=== PATIENT | male | born 1955 | race Caucasian/White ===

== ENCOUNTER 2018-03-12 11:01 | Emergency (ER) | payer MEDICARE, MEDICAID ==
[~2018-03-12] VITALS: Ht 188 cm; Wt 78.0 kg
[~2018-03-12 11:01] MED LIST: AMLO10TA4 PO; ASPI-1265 PO; ATOR40TA3 PO; LORA-660 PO; LOSA50TA3 PO; METO-477 PO
[2018-03-12] MEDS ORDERED: AMLO10TA4 PO (11:50)
[2018-03-12] MEDS ORDERED: amLODIPine 5mg tablet PO ONE (11:50)
[2018-03-12] MEDS ORDERED: metoprolol tartrate 50mg tablet PO ONE (12:20)
[2018-03-12] MEDS ORDERED: normal saline 1000ML IV soln IVB ONE (13:15)
[2018-03-12] MEDS ORDERED: hydrALAZINE 20mg/ml inj. IV ONE (13:15)
[2018-03-12 13:26] LABS: BASOPHILS % (AUTO) 0.6 % (0-1); EOSINOPHILS # (AUTO) 0.3 X10'3 (0-0.9); EOSINOPHILS % (AUTO) 5.1 % (0-6); HEMATOCRIT 44.8 % (42.0-52.0); HEMOGLOBIN 15.5 g/dl (14.0-17.9); LYMPHOCYTES # (AUTO) 1.3 X10'3 (1.1-4.8); LYMPHOCYTES % (AUTO) 19.5 % (21-51); MEAN CORPUSCULAR HEMOGLOBIN 32.1 PG (27.0-31.0); MEAN CORPUSCULAR HGB CONC 34.7 % (33.0-36.5); MEAN CORPUSCULAR VOLUME 92.6 FL (78-98); MEAN PLATELET VOLUME 8.4 FL (7.4-10.4); MONOCYTES # (AUTO) 0.6 X10'3 (0-0.9); MONOCYTES % (AUTO) 8.6 % (2-12); NEUTROPHILS # (AUTO) 4.5 X10'3 (1.8-7.7); NEUTROPHILS % (AUTO) 66.2 % (42-75); PLATELET COUNT 271 X10'3 (140-440); RED BLOOD COUNT 4.83 X10'6 (4.70-6.10); RED CELL DISTRIBUTION WIDTH 13.6 % (11.5-14.5); WHITE BLOOD COUNT 6.8 X10'3 (4.5-11.0)
[2018-03-12] MEDS ORDERED: furosemide 10 MG/1 ML 10ml inj IV ONE (13:55)
[2018-03-12 14:04] LABS: ALANINE AMINOTRANSFERASE 46 U/L (12-78); ALBUMIN 3.4 G/DL (3.4-5.0); ALBUMIN/GLOBULIN RATIO 0.9 (1.1-1.5); ALKALINE PHOSPHATASE 77 IU/L (46-116); ANION GAP 10 (8-16); ASPARTATE AMINO TRANSFERASE 26 U/L (10-37); BILIRUBIN,TOTAL 0.4 MG/DL (0.1-1.0); BLOOD UREA NITROGEN 18 MG/DL (7-18); BUN/CREATININE RATIO 11.9 (5.4-32.0); CALCIUM 8.8 MG/DL (8.5-10.1); CHLORIDE 103 MMOL/L (99-107); CREATININE 1.51 MG/DL (0.60-1.10); GLUCOSE 110 MG/DL (70-104); POTASSIUM 3.4 MMOL/L (3.5-5.1); SODIUM 139 MMOL/L (135-145); TOTAL CARBON DIOXIDE 26.2 MMOL/L (24-32); TOTAL PROTEIN 7.3 G/DL (6.4-8.2); eGFR 47 ML/MIN
[2018-03-12] MEDS ORDERED: potassium Cl oral solution 20 MEQ/15 ML PO ONE (14:15)
[2018-03-12 14:21] VITALS: BP 192/102
== END 2018-03-12 14:25 | disposition home or self-care (01) ==
LOC: ER 11:02
DX: K40.90 Unilateral inguinal hernia, without obstruction or gangrene, not specified as recurrent (principal); I16.0 Hypertensive urgency; I10 Essential (primary) hypertension; Z91.14 Patient's other noncompliance with medication regimen; Z86.73 Personal history of transient ischemic attack (TIA), and cerebral infarction without residual deficits; Z98.890 Other specified postprocedural states; Z88.8 Allergy status to other drugs, medicaments and biological substances; Z79.82 Long term (current) use of aspirin; Z79.899 Other long term (current) drug therapy
CPT/HCPCS: 36415; 71045; 80053; 83880; 84484; 85025; 93005; 96374; 96375; 99285; J0360; J1940; J7030

== ENCOUNTER 2018-06-23 09:03 | Inpatient (IN) | payer MEDICARE, MEDICAID ==
[~2018-06-23] VITALS: Ht 188 cm; Wt 109.9 kg
[~2018-06-23 09:03] MED LIST changes: -ASPI-1265 PO; -ATOR40TA3 PO; -LORA-660 PO; -LOSA50TA3 PO; -METO-477 PO
[2018-06-23 10:17] LABS: CLARITY,URINE CLEAR (Clear); COLOR,URINE YELLOW (Yellow); GLUCOSE, URINE NEGATIVE (Neg); KETONES,URINE NEGATIVE (Neg); LEUKOCYTE ESTERASE ,URINE NEGATIVE (Neg); NITRITES, URINE NEGATIVE (Neg); OCCULT BLOOD,URINE TRACE-INTACT (Neg); PROTEIN,URINE >=300 mg/dl (Neg); UA COLLECTION TYPE VOIDED; UROBILINOGEN,URINE 0.2 E.U/dL (0.2-1.0)
[2018-06-23 10:25] LABS: BASOPHILS # (AUTO) 0.1 X10'3 (0-0.2); BASOPHILS % (AUTO) 0.5 % (0-1); EOSINOPHILS # (AUTO) 1.6 X10'3 (0-0.9); EOSINOPHILS % (AUTO) 14.6 % (0-6); HEMATOCRIT 43.9 % (42.0-52.0); HEMOGLOBIN 15.2 g/dl (14.0-17.9); LYMPHOCYTES # (AUTO) 1.4 X10'3 (1.1-4.8); LYMPHOCYTES % (AUTO) 12.2 % (21-51); MEAN CORPUSCULAR HGB CONC 34.6 % (33.0-36.5); MEAN CORPUSCULAR VOLUME 92.5 FL (78-98); MEAN PLATELET VOLUME 8.9 FL (7.4-10.4); MONOCYTES # (AUTO) 0.4 X10'3 (0-0.9); MONOCYTES % (AUTO) 3.7 % (2-12); NEUTROPHILS # (AUTO) 7.8 X10'3 (1.8-7.7); PLATELET COUNT 263 X10'3 (140-440); RED BLOOD COUNT 4.75 X10'6 (4.70-6.10); RED CELL DISTRIBUTION WIDTH 13.2 % (11.5-14.5); WHITE BLOOD COUNT 11.3 X10'3 (4.5-11.0)
[2018-06-23 10:30] LABS: BACTERIA,URINE NONE SEEN /HPF (Neg); RBC,URINE 0-2 /HPF (0-2); SQUAMOUS EPITHELIAL CELL,UR NONE SEEN /LPF (FEW); WBC,URINE NONE SEEN /HPF (0-4)
[2018-06-23 10:33] LABS: ALANINE AMINOTRANSFERASE 54 U/L (12-78); ALBUMIN 3.8 G/DL (3.4-5.0); ALBUMIN/GLOBULIN RATIO 0.9 (1.1-1.5); ALKALINE PHOSPHATASE 87 IU/L (46-116); ANION GAP 11 (8-16); ASPARTATE AMINO TRANSFERASE 27 U/L (10-37); BILIRUBIN,TOTAL 0.4 MG/DL (0.1-1.0); BLOOD UREA NITROGEN 20 MG/DL (7-18); BUN/CREATININE RATIO 16.9 (5.4-32.0); CHLORIDE 102 MMOL/L (99-107); CREATININE 1.18 MG/DL (0.60-1.10); GLUCOSE 108 MG/DL (70-104); POTASSIUM 3.6 MMOL/L (3.5-5.1); SODIUM 140 MMOL/L (135-145); TOTAL CARBON DIOXIDE 27.2 MMOL/L (24-32); TOTAL PROTEIN 7.9 G/DL (6.4-8.2); eGFR 62 ML/MIN
[2018-06-23 10:36] LABS: PROTHROMBIN TIME 10.6 SECONDS (9.0-12.0)
[2018-06-23] MEDS ORDERED: cyclobenzaprine 10mg tablet PO ONE (11:05)
[2018-06-23] MEDS ORDERED: morphine 4 MG/ML inj SYRINge IV ONE ×2 (12:10→12:30)
[2018-06-23] MEDS: labetalol 20mg/4ml (5mg/ml) syringe IV PRN ×3 (12:38→13:31)
[2018-06-23] MEDS ORDERED: ondansetron/PF 4mg/2ml inj IV PRN (16:05)
[2018-06-23] MEDS ORDERED: magnesium hydroxide 30ml (MOM) UD suspension PO PRN (16:05)
[2018-06-23] MEDS ORDERED: acetaminophen 325mg tablet PO PRN ×2 (16:05)
[2018-06-23] MEDS ORDERED: hydrALAZINE 20mg/ml inj. IV ONE (16:30)
[2018-06-23] MEDS ORDERED: niCARDipine/sod cl 20mg/200ml 200 ML IV SCH (16:35)
[2018-06-23] MEDS ORDERED: FOLI-101 PO (16:36)
[2018-06-23] MEDS ORDERED: HYDR-4353 PO (16:37)
[2018-06-23] MEDS ORDERED: niCARDipine-NS 40mg/200ml IVPB 200 ML IV SCH (16:45)
[2018-06-23] MEDS: niCARDipine-NS 40mg/200ml IVPB 200 ML IV SCH (17:16)
[2018-06-23 19:00] VITALS: BP 171/86
[2018-06-23 20:00] VITALS: BP 146/62
[2018-06-23 21:00] VITALS: BP 178/84
[2018-06-23 23:00] VITALS: BP 140/111
[2018-06-24] VITALS (9 sets, daily range): BP systolic 135–165; BP diastolic 60–81
[2018-06-24] MEDS: niCARDipine-NS 40mg/200ml IVPB 200 ML IV SCH (04:39)
[2018-06-24 05:16] LABS: BASOPHILS # (AUTO) 0.1 X10'3 (0-0.2); BASOPHILS % (AUTO) 0.6 % (0-1); EOSINOPHILS % (AUTO) 22.7 % (0-6); HEMOGLOBIN 13.6 g/dl (14.0-17.9); LYMPHOCYTES # (AUTO) 1.9 X10'3 (1.1-4.8); LYMPHOCYTES % (AUTO) 21.9 % (21-51); MEAN CORPUSCULAR HEMOGLOBIN 32.4 PG (27.0-31.0); MEAN CORPUSCULAR VOLUME 92.5 FL (78-98); MEAN PLATELET VOLUME 8.6 FL (7.4-10.4); MONOCYTES # (AUTO) 0.6 X10'3 (0-0.9); MONOCYTES % (AUTO) 7.1 % (2-12); NEUTROPHILS # (AUTO) 4.3 X10'3 (1.8-7.7); NEUTROPHILS % (AUTO) 47.7 % (42-75); PLATELET COUNT 243 X10'3 (140-440); RED BLOOD COUNT 4.21 X10'6 (4.70-6.10); RED CELL DISTRIBUTION WIDTH 13.3 % (11.5-14.5); WHITE BLOOD COUNT 8.9 X10'3 (4.5-11.0)
[2018-06-24 05:28] LABS: ALANINE AMINOTRANSFERASE 45 U/L (12-78); ALBUMIN 3.1 G/DL (3.4-5.0); ALBUMIN/GLOBULIN RATIO 0.9 (1.1-1.5); ALKALINE PHOSPHATASE 70 IU/L (46-116); ANION GAP 8 (8-16); ASPARTATE AMINO TRANSFERASE 22 U/L (10-37); BILIRUBIN,TOTAL 0.4 MG/DL (0.1-1.0); BLOOD UREA NITROGEN 25 MG/DL (7-18); BUN/CREATININE RATIO 18.5 (5.4-32.0); CALCIUM 8.4 MG/DL (8.5-10.1); CHLORIDE 103 MMOL/L (99-107); CHOL/HDL RATIO 5.9 (0.00-4.99); CHOLESTEROL 195 MG/DL (0-200); CREATININE 1.35 MG/DL (0.60-1.10); GLUCOSE 100 MG/DL (70-104); HDL CHOLESTEROL 33 MG/DL (35-60); LDL CHOLESTEROL 129 MG/DL (50-100); POTASSIUM 3.4 MMOL/L (3.5-5.1); SODIUM 141 MMOL/L (135-145); TOTAL CARBON DIOXIDE 29.7 MMOL/L (24-32); TOTAL PROTEIN 6.5 G/DL (6.4-8.2); TRIGLYCERIDES 179 MG/DL (20-135); eGFR 53 ML/MIN
[2018-06-24 06:47] LABS: PLATELET ESTIMATE NORMAL; TOTAL CELLS COUNTED 100
[2018-06-24] MEDS: heparin, porcine 5000 units/ml vial SQ SCH ×4 (07:33→21:33)
[2018-06-24] MEDS: NIFEdipine XL 30mg tablet PO SCH (09:50)
[2018-06-24] MEDS: mag hydrox/Alum hydrox/simeth 30ml oral suspension PO PRN ×2 (15:25→20:23)
[2018-06-24] MEDS ORDERED: heparin, porcine 5000 units/ml vial SQ SCH (22:00)
[2018-06-25 03:00] VITALS: BP 164/78
[2018-06-25 06:00] VITALS: BP 154/81
[2018-06-25 06:23] LABS: ALANINE AMINOTRANSFERASE 45 U/L (12-78); ALBUMIN 3.2 G/DL (3.4-5.0); ALBUMIN/GLOBULIN RATIO 0.8 (1.1-1.5); ALKALINE PHOSPHATASE 72 IU/L (46-116); ANION GAP 6 (8-16); ASPARTATE AMINO TRANSFERASE 20 U/L (10-37); BILIRUBIN,TOTAL 0.5 MG/DL (0.1-1.0); BLOOD UREA NITROGEN 30 MG/DL (7-18); BUN/CREATININE RATIO 21.7 (5.4-32.0); CALCIUM 8.5 MG/DL (8.5-10.1); CHLORIDE 103 MMOL/L (99-107); CREATININE 1.38 MG/DL (0.60-1.10); GLUCOSE 106 MG/DL (70-104); POTASSIUM 3.5 MMOL/L (3.5-5.1); SODIUM 139 MMOL/L (135-145); TOTAL CARBON DIOXIDE 30.2 MMOL/L (24-32); eGFR 52 ML/MIN
[2018-06-25 07:03] LABS: BASOPHILS % (AUTO) 0.5 % (0-1); EOSINOPHILS # (AUTO) 2.4 X10'3 (0-0.9); EOSINOPHILS % (AUTO) 24.7 % (0-6); HEMATOCRIT 41.3 % (42.0-52.0); HEMOGLOBIN 14.1 g/dl (14.0-17.9); LYMPHOCYTES % (AUTO) 20.1 % (21-51); MEAN CORPUSCULAR HEMOGLOBIN 31.9 PG (27.0-31.0); MEAN CORPUSCULAR HGB CONC 34.1 % (33.0-36.5); MEAN CORPUSCULAR VOLUME 93.4 FL (78-98); MEAN PLATELET VOLUME 8.7 FL (7.4-10.4); MONOCYTES # (AUTO) 0.6 X10'3 (0-0.9); MONOCYTES % (AUTO) 5.8 % (2-12); NEUTROPHILS # (AUTO) 4.8 X10'3 (1.8-7.7); NEUTROPHILS % (AUTO) 48.9 % (42-75); PLATELET COUNT 264 X10'3 (140-440); RED BLOOD COUNT 4.42 X10'6 (4.70-6.10); WHITE BLOOD COUNT 9.8 X10'3 (4.5-11.0)
[2018-06-25] MEDS: NIFEdipine XL 30mg tablet PO SCH (07:24)
[2018-06-25] MEDS: heparin, porcine 5000 units/ml vial SQ SCH ×2 (07:24→14:00)
[2018-06-25] MEDS ORDERED: atorvastatin 20mg tablet PO SCH (08:00)
[2018-06-25 08:03] LABS: TOTAL CELLS COUNTED 100
[2018-06-25 08:05] LABS: PLATELET ESTIMATE NORMAL
[2018-06-25] MEDS ORDERED: aspirin 81mg tab.chew PO SCH (08:30)
[2018-06-25 10:25] VITALS: BP 160/69
[2018-06-25 11:12] VITALS: BP 143/69
[2018-06-25] MEDS ORDERED: PRO30XLT PO (12:47)
[2018-06-25] MEDS ORDERED: ATOR20TA66 PO (12:47)
[2018-06-25] MEDS ORDERED: ASPI-1265 PO (12:47)
== END 2018-06-25 16:10 | disposition home or self-care (01) | DRG 305 ==
LOC: ER 09:04 → ED HOLD 16:25 → EDBEDREQ 18:23 → PCU 3S 19:08
PROVIDERS: ADMIT Family Medicine; ATTEND Family Medicine
DX: I16.9 Hypertensive crisis, unspecified (principal); M17.11 Unilateral primary osteoarthritis, right knee; I69.320 Aphasia following cerebral infarction; E78.5 Hyperlipidemia, unspecified; F20.9 Schizophrenia, unspecified; I10 Essential (primary) hypertension; K43.9 Ventral hernia without obstruction or gangrene; T46.4X5A Adverse effect of angiotensin-converting-enzyme inhibitors, initial encounter; Z88.8 Allergy status to other drugs, medicaments and biological substances; Z79.899 Other long term (current) drug therapy; Z82.3 Family history of stroke; Z83.3 Family history of diabetes mellitus; Z28.21 Immunization not carried out because of patient refusal
CPT/HCPCS: 36415; 71045; 74176; 80053; 80061; 81001; 83880; 84484; 85025; 85610; 87070; 93306; 96374; 96375; 96376; 99285; J1644; J2270; J3490; Q2037

== ENCOUNTER 2018-09-02 08:43 | Inpatient (IN) | payer MEDICARE, MEDICAID ==
[2018-08-25 15:31] LABS: ALBUMIN 3.6 G/DL (3.4-5.0); ALBUMIN/GLOBULIN RATIO 0.9 (1.1-1.5); ALKALINE PHOSPHATASE 77 IU/L (46-116); BLOOD UREA NITROGEN 38 MG/DL (7-18); BUN/CREATININE RATIO 20.5 (5.4-32.0); CALCIUM 8.9 MG/DL (8.5-10.1); CHLORIDE 99 MMOL/L (99-107); CREATININE 1.85 MG/DL (0.60-1.10); PRE OP ALT 46 U/L (30-65); PRE OP ANION GAP 12 (8-16); PRE OP AST 28 U/L (10-37); PRE OP BILIRUB, TOTAL 0.2 MG/DL (0.0-1.0); PRE OP GLUCOSE 138 MG/DL (70-104); PRE OP POTASSIUM 3.4 MMOL/L (3.4-5.1); PRE OP SODIUM 138 MMOL/L (135-145); RED BLOOD COUNT 4.48 X10'6 (4.70-6.10); TOTAL CARBON DIOXIDE 26.8 MMOL/L (24-32); TOTAL PROTEIN 7.7 G/DL (6.4-8.2); eGFR 37 ML/MIN
[2018-08-25 15:32] LABS: BASOPHILS # (AUTO) 0.1 X10'3 (0-0.2); BASOPHILS % (AUTO) 0.7 % (0-1); EOSINOPHILS # (AUTO) 0.4 X10'3 (0-0.9); EOSINOPHILS % (AUTO) 5.3 % (0-6); LYMPHOCYTES # (AUTO) 1.6 X10'3 (1.1-4.8); LYMPHOCYTES % (AUTO) 19.5 % (21-51); MEAN CORPUSCULAR HEMOGLOBIN 32.6 PG (27.0-31.0); MEAN CORPUSCULAR HGB CONC 34.7 % (33.0-36.5); MEAN CORPUSCULAR VOLUME 93.9 FL (78-98); MEAN PLATELET VOLUME 8.3 FL (7.4-10.4); MONOCYTES # (AUTO) 0.6 X10'3 (0-0.9); MONOCYTES % (AUTO) 7.6 % (2-12); NEUTROPHILS # (AUTO) 5.6 X10'3 (1.8-7.7); NEUTROPHILS % (AUTO) 66.9 % (42-75); PRE OP HEMATOCRIT 42.1 % (42.0-52.0); PRE OP HEMOGLOBIN 14.6 g/dL (14.0-17.9); PRE OP PLATELET COUNT 320 X10'3 (140-440); RED CELL DISTRIBUTION WIDTH 13.1 % (11.5-14.5)
[~2018-09-02] VITALS: Ht 188 cm; Wt 97.0 kg
[2018-09-02] VITALS (20 sets, daily range): BP systolic 124–166; BP diastolic 64–131
[~2018-09-02 08:43] MED LIST changes: +ATOR20TA66 PO; +ROPIVAcaine 0.5% (5mg/ml) 30ml vial ONE; +acetaminophen 325mg tablet PO ONE; +bacitracin 15gm ointment TP ONE; +cefazolin/dext.iso 2gm/50ml 50 ML IV ONE; +epiNEPHrine 1 mg/ml inj ONE; +famotidine 20mg tablet PO ONE; +gabapentin 300mg capsule PO ONE; +ketorolac trometh. 30mg/ml inj. ONE; +metoclopramide 5 mg/ml inj IV ONE; +morphine 10mg/ml inj. ONE; +oxyCODONE SR 10mg (sust. release) tab -2 tabs (20mg) PO ONE; +tranexamic acid inj. 1,000 MG in normal saline 100ml IV soln 90 ML IV ONE; +vancomycin 1,000mg inj ONE; +vancomycin inj 1,500 MG in normal saline 300ml IV soln IV ONE
[2018-09-02] MEDS ORDERED: sevoflurane 250ml liquid IH ONE (09:33)
[2018-09-02] MEDS ORDERED: labetalol 20mg/4ml (5mg/ml) syringe IV ONE (09:33)
[2018-09-02] MEDS ORDERED: fentaNYL/PF 50MCG/1 ML 2ML syringe ONE (09:41)
[2018-09-02] MEDS ORDERED: MIDAZolam 1mg/ml 10ml vial ONE (09:41)
[2018-09-02] MEDS ORDERED: BUPIVAcaine/dex-water/PF 7.5 mg/ml 2ml ampul ONE (09:43)
[2018-09-02] MEDS ORDERED: propofol inj 20 ML IV ONE ×2 (10:23)
[2018-09-02] MEDS ORDERED: ringers solution, lacted 1,000 ML IV SCH (10:34)
[2018-09-02] MEDS ORDERED: morphine 4 MG/ML inj SYRINge IV PRN (10:35)
[2018-09-02] MEDS ORDERED: ondansetron/PF 4mg/2ml inj IV PRN ×2 (10:35→13:25)
[2018-09-02] MEDS ORDERED: proCHLORperazine 10 MG/2 ml inj IV PRN (10:35)
[2018-09-02] MEDS ORDERED: ROPIVACAINE HCL/PF PAIN PUMP 400 ML IJ ONE (12:20)
[2018-09-02] MEDS ORDERED: ROPIVACAINE HCL/PF PAIN PUMP 400 ML IJ SCH ×2 (12:43→15:55)
[2018-09-02] MEDS ORDERED: bisacodyl 10mg suppository rectal RC PRN (13:25)
[2018-09-02] MEDS ORDERED: magnesium hydroxide 30ml (MOM) UD suspension PO PRN (13:25)
[2018-09-02] MEDS ORDERED: acetaminophen 325mg tablet PO PRN (13:25)
[2018-09-02] MEDS ORDERED: diphenhydrAMINE 25mg capsule PO PRN ×2 (13:25)
[2018-09-02] MEDS ORDERED: ROPIVAcaine 0.5% (5mg/ml) 30ml vial ONE (13:28)
[2018-09-02] MEDS ORDERED: ATOR40TA PO (13:30)
[2018-09-02] MEDS: acetaminophen 325mg tablet PO SCH ×2 (14:00→20:36)
[2018-09-02] MEDS: morphine 4 MG/ML inj SYRINge IV PRN ×2 (15:10→15:41)
[2018-09-02] MEDS: ceFAZolin 1GM/D5W- ADD-VANTAGE 50 ML IV SCH ×2 (16:03→23:55)
[2018-09-02] MEDS ORDERED: tranexamic acid inj. 1,000 MG in normal saline 100ml IV soln 100 ML IV ONE (16:30)
[2018-09-02] MEDS: potassium cl 20mEq in 1/2 NS 1,000 ML IV SCH ×2 (17:34→21:23)
[2018-09-02] MEDS ORDERED: vancomycin/NS 1 GM ADD-VANTAGE 250 ML IV SCH (20:00)
[2018-09-02] MEDS: ROPIVACAINE HCL/PF PAIN PUMP 400 ML IJ SCH (20:30)
[2018-09-02] MEDS: gabapentin 300mg capsule PO SCH (20:36)
[2018-09-02] MEDS: sennosides 8.6mg tablet PO SCH (20:36)
[2018-09-03] MEDS: oxyCODONE IR 5mg (immed. release) tablet PO PRN ×5 (00:05→20:51)
[2018-09-03] MEDS: acetaminophen 325mg tablet PO SCH ×4 (01:54→19:36)
[2018-09-03 02:00] VITALS: BP 169/80
[2018-09-03] MEDS: potassium cl 20mEq in 1/2 NS 1,000 ML IV SCH ×3 (02:48→19:36)
[2018-09-03] MEDS ORDERED: amLODIPine 5mg tablet PO ONE (05:35)
[2018-09-03 05:44] VITALS: BP 184/94
[2018-09-03 06:00] VITALS: BP 184/94
[2018-09-03 07:15] LABS: BASOPHILS % (AUTO) 0.2 % (0-1); EOSINOPHILS # (AUTO) 0.6 X10'3 (0-0.9); EOSINOPHILS % (AUTO) 7.2 % (0-6); HEMATOCRIT 32.8 % (42.0-52.0); HEMOGLOBIN 11.1 g/dl (14.0-17.9); LYMPHOCYTES # (AUTO) 0.9 X10'3 (1.1-4.8); LYMPHOCYTES % (AUTO) 12.1 % (21-51); MEAN CORPUSCULAR HEMOGLOBIN 31.9 PG (27.0-31.0); MEAN CORPUSCULAR VOLUME 93.7 FL (78-98); MEAN PLATELET VOLUME 7.6 FL (7.4-10.4); MONOCYTES # (AUTO) 0.7 X10'3 (0-0.9); MONOCYTES % (AUTO) 9.4 % (2-12); NEUTROPHILS # (AUTO) 5.6 X10'3 (1.8-7.7); NEUTROPHILS % (AUTO) 71.1 % (42-75); PLATELET COUNT 233 X10'3 (140-440); RED CELL DISTRIBUTION WIDTH 14.2 % (11.5-14.5); WHITE BLOOD COUNT 7.8 X10'3 (4.5-11.0)
[2018-09-03 07:26] LABS: ANION GAP 7 (8-16); CHLORIDE 99 MMOL/L (99-107); POTASSIUM 3.1 MMOL/L (3.5-5.1); SODIUM 137 MMOL/L (135-145); TOTAL CARBON DIOXIDE 30.8 MMOL/L (24-32)
[2018-09-03] MEDS ORDERED: amLODIPine 5mg tablet PO SCH (08:00)
[2018-09-03] MEDS: HYDROmorphone 1 mg/ml syringe IV PRN (08:59)
[2018-09-03] MEDS: gabapentin 300mg capsule PO SCH ×3 (09:00→20:51)
[2018-09-03] MEDS: enoxaparin 40mg/0.4ml syringe SQ SCH (09:01)
[2018-09-03 10:00] VITALS: BP 176/85
[2018-09-03] MEDS ORDERED: magnesium Cl slow-release 64mg tablet PO PRN (11:05)
[2018-09-03] MEDS ORDERED: potassium Cl 40MEQ/NS 500ml 500 ML IV PRN ×2 (11:05)
[2018-09-03] MEDS ORDERED: potassium Cl 20 mEq SR tablet PO PRN (11:05)
[2018-09-03] MEDS ORDERED: magnesium 4gm in 100ml NS 100 ML IV PRN (11:05)
[2018-09-03] MEDS: potassium Cl 20 mEq SR tablet PO PRN ×3 (12:05→20:53)
[2018-09-03 18:00] VITALS: BP 182/88
[2018-09-03] MEDS: sennosides 8.6mg tablet PO SCH (20:51)
[2018-09-03 22:00] VITALS: BP 182/82
[2018-09-04] VITALS (15 sets, daily range): BP systolic 137–250; BP diastolic 60–104
[2018-09-04] MEDS: acetaminophen 325mg tablet PO SCH ×2 (02:03→09:43)
[2018-09-04] MEDS: oxyCODONE IR 5mg (immed. release) tablet PO PRN ×6 (02:03→23:11)
[2018-09-04 06:22] LABS: BASOPHILS % (AUTO) 0.3 % (0-1); EOSINOPHILS # (AUTO) 0.1 X10'3 (0-0.9); EOSINOPHILS % (AUTO) 1.3 % (0-6); HEMATOCRIT 31.3 % (42.0-52.0); HEMOGLOBIN 10.8 g/dl (14.0-17.9); LYMPHOCYTES # (AUTO) 1.1 X10'3 (1.1-4.8); LYMPHOCYTES % (AUTO) 10.4 % (21-51); MEAN CORPUSCULAR HEMOGLOBIN 32.2 PG (27.0-31.0); MEAN CORPUSCULAR HGB CONC 34.6 % (33.0-36.5); MEAN PLATELET VOLUME 7.6 FL (7.4-10.4); MONOCYTES # (AUTO) 1.1 X10'3 (0-0.9); MONOCYTES % (AUTO) 10.4 % (2-12); NEUTROPHILS % (AUTO) 77.6 % (42-75); PLATELET COUNT 230 X10'3 (140-440); RED BLOOD COUNT 3.37 X10'6 (4.70-6.10); RED CELL DISTRIBUTION WIDTH 13.6 % (11.5-14.5); WHITE BLOOD COUNT 10.3 X10'3 (4.5-11.0)
[2018-09-04] MEDS: amLODIPine 5mg tablet PO SCH (07:11)
[2018-09-04] MEDS: HYDROmorphone 1 mg/ml syringe IV PRN ×2 (07:16→11:58)
[2018-09-04] MEDS ORDERED: hydrALAZINE 20mg/ml inj. IV ONE (09:20)
[2018-09-04] MEDS: gabapentin 300mg capsule PO SCH ×3 (09:43→20:33)
[2018-09-04] MEDS: enoxaparin 40mg/0.4ml syringe SQ SCH (09:44)
[2018-09-04] MEDS ORDERED: labetalol 20mg/4ml (5mg/ml) syringe IV ONE (11:25)
[2018-09-04] MEDS ORDERED: hydrALAZINE 20mg/ml inj. IV STA (11:41)
[2018-09-04] MEDS ORDERED: acetaminophen 325mg tablet PO PRN (13:25)
[2018-09-04] MEDS: labetalol 100mg tablet PO SCH (14:41)
[2018-09-04] MEDS ORDERED: CHLO50TA PO (16:05)
[2018-09-04] MEDS ORDERED: LABE100T5 PO (18:41)
[2018-09-04] MEDS: potassium Cl 20 mEq SR tablet PO PRN ×2 (18:57→23:11)
[2018-09-04] MEDS: hydrALAZINE 20mg/ml inj. IV PRN (18:58)
[2018-09-04] MEDS: sennosides 8.6mg tablet PO SCH (20:33)
[2018-09-05 01:40] VITALS: BP 180/85
[2018-09-05] MEDS: hydrALAZINE 20mg/ml inj. IV PRN ×3 (01:41→17:34)
[2018-09-05] MEDS: potassium Cl 20 mEq SR tablet PO PRN (03:35)
[2018-09-05] MEDS: oxyCODONE IR 5mg (immed. release) tablet PO PRN ×4 (03:36→23:37)
[2018-09-05 04:00] VITALS: BP 146/86
[2018-09-05 05:43] VITALS: BP 171/86
[2018-09-05 06:24] LABS: BASOPHILS % (AUTO) 0.2 % (0-1); EOSINOPHILS # (AUTO) 0.3 X10'3 (0-0.9); EOSINOPHILS % (AUTO) 2.9 % (0-6); HEMATOCRIT 26.6 % (42.0-52.0); HEMOGLOBIN 9.1 g/dl (14.0-17.9); LYMPHOCYTES # (AUTO) 1.2 X10'3 (1.1-4.8); LYMPHOCYTES % (AUTO) 10.8 % (21-51); MEAN CORPUSCULAR HEMOGLOBIN 31.8 PG (27.0-31.0); MEAN CORPUSCULAR HGB CONC 34.1 % (33.0-36.5); MEAN CORPUSCULAR VOLUME 93.1 FL (78-98); MEAN PLATELET VOLUME 7.7 FL (7.4-10.4); MONOCYTES % (AUTO) 9.2 % (2-12); NEUTROPHILS # (AUTO) 8.4 X10'3 (1.8-7.7); NEUTROPHILS % (AUTO) 76.9 % (42-75); PLATELET COUNT 222 X10'3 (140-440); RED BLOOD COUNT 2.85 X10'6 (4.70-6.10); RED CELL DISTRIBUTION WIDTH 13.9 % (11.5-14.5); WHITE BLOOD COUNT 10.9 X10'3 (4.5-11.0)
[2018-09-05] MEDS: enoxaparin 40mg/0.4ml syringe SQ SCH (07:59)
[2018-09-05] MEDS: amLODIPine 5mg tablet PO SCH (07:59)
[2018-09-05] MEDS: gabapentin 300mg capsule PO SCH ×3 (07:59→21:29)
[2018-09-05] MEDS: labetalol 100mg tablet PO SCH ×3 (08:30→21:29)
[2018-09-05] MEDS ORDERED: mag hydrox/Alum hydrox/simeth 30ml oral suspension PO ONE (11:15)
[2018-09-05 16:07] VITALS: BP 113/92
[2018-09-05 18:00] VITALS: BP 172/86
[2018-09-05] MEDS: sennosides 8.6mg tablet PO SCH (21:29)
[2018-09-05 22:00] VITALS: BP 158/86
[2018-09-06] MEDS: oxyCODONE IR 5mg (immed. release) tablet PO PRN ×3 (05:29→19:36)
[2018-09-06 06:00] VITALS: BP 130/71
[2018-09-06] MEDS: gabapentin 300mg capsule PO SCH ×3 (07:58→20:23)
[2018-09-06] MEDS: amLODIPine 5mg tablet PO SCH (07:58)
[2018-09-06] MEDS: labetalol 100mg tablet PO SCH ×3 (08:01→20:23)
[2018-09-06] MEDS: enoxaparin 40mg/0.4ml syringe SQ SCH (08:01)
[2018-09-06] MEDS: HYDROmorphone 1 mg/ml syringe IV PRN (08:14)
[2018-09-06 10:00] VITALS: BP 131/63
[2018-09-06] MEDS: ROPIVACAINE HCL/PF PAIN PUMP 400 ML IJ SCH (11:20)
[2018-09-06] MEDS: normal saline 1000ml 1,000 ML IV SCH (11:20)
[2018-09-06 15:26] VITALS: BP 169/68
[2018-09-06 18:00] VITALS: BP 144/67
[2018-09-06] MEDS: sennosides 8.6mg tablet PO SCH (20:24)
[2018-09-06 22:00] VITALS: BP 130/62
[2018-09-07 06:21] VITALS: BP 150/67
[2018-09-07 08:00] VITALS: BP 156/60
[2018-09-07] MEDS: oxyCODONE IR 5mg (immed. release) tablet PO PRN (08:06)
[2018-09-07] MEDS: enoxaparin 40mg/0.4ml syringe SQ SCH (08:07)
[2018-09-07] MEDS: amLODIPine 5mg tablet PO SCH (08:07)
[2018-09-07] MEDS: labetalol 100mg tablet PO SCH (08:07)
[2018-09-07] MEDS: gabapentin 300mg capsule PO SCH ×2 (08:07→13:43)
[2018-09-07] MEDS: normal saline 1000ml 1,000 ML IV SCH ×2 (08:09→09:12)
== END 2018-09-07 14:30 | DRG 467 ==
LOC: PAS IN 08:43 → EDSTATUS 10:30 → ORTHO 4S 15:15
PROVIDERS: ADMIT Orthopaedic Surgery; ATTEND Orthopaedic Surgery
PROC: 0SRC0J9 Replacement of Right Knee Joint with Synthetic Substitute, Cemented, Open Approach (ICD-10-PCS; 2018-09-02)
PROC: 3E0T3BZ Introduction of Anesthetic Agent into Peripheral Nerves and Plexi, Percutaneous Approach (ICD-10-PCS; 2018-09-02)
PROC: 0SPC0JZ Removal of Synthetic Substitute from Right Knee Joint, Open Approach (ICD-10-PCS; principal; 2018-09-02 09:33)
DX: T84.032A Mechanical loosening of internal right knee prosthetic joint, initial encounter (principal); D62 Acute posthemorrhagic anemia; I10 Essential (primary) hypertension; I25.10 Atherosclerotic heart disease of native coronary artery without angina pectoris; K21.9 Gastro-esophageal reflux disease without esophagitis; Y83.1 Surgical operation with implant of artificial internal device as the cause of abnormal reaction of the patient, or of later complication, without mention of misadventure at the time of the procedure; Z88.8 Allergy status to other drugs, medicaments and biological substances; Z79.899 Other long term (current) drug therapy; Z86.73 Personal history of transient ischemic attack (TIA), and cerebral infarction without residual deficits; Y92.89 Other specified places as the place of occurrence of the external cause
CPT/HCPCS: 36415; 73560; 80051; 80053; 84132; 85025; 87070; 93005; 97110; 97116; 97161; 97530; G0378; J0171; J0360; J0690; J1170; J1650; J1885; J2250; J2270; J2704; J2765; J2795; J3010; J3370; J3490; J7030; J7120